=== PATIENT | male | born 1940 | race Caucasian/White ===

== ENCOUNTER → 2020-12-16 00:16 | Outpatient (CLI) | payer OTHER, SELFPAY ==
[2020-12-16 19:32] LABS: SARS-CoV-2 RNA PCR Negative
== END ==
PROVIDERS: PCP Internal Medicine; Visit Provider Internal Medicine Gastroenterology
DX: Z01.812 Encounter for preprocedural laboratory examination (principal); Z20.822 Contact with and (suspected) exposure to COVID-19
CPT/HCPCS: C9803; U0003; U0005

== ENCOUNTER 2020-12-19 01:28 | Day surgery (SDC) | payer OTHER, SELFPAY ==
--- NOTE | 2020-12-19 10:17 | WPDANESEPP ---
Anes - Eval Pre Procedure Procedure: Operation Date: 12/19/20 13:30 Proposed Procedures p Screening Colonoscopy - Arron Hsieh MD Date/Time: 12/19/20 10:17 Pre Op Diagnosis: Hx of Colon Polyps Patient Data Age: 80 Gender: M Height: 5 ft 11 in Weight: 65 kg Allergies Allergy/AdvReac Type Severity Reaction Status Date / Time No Known Allergies Allergy Unverified 11/20/20 08:02 Home Medications Medication Instructions Recorded Confirmed Type aspirin 81 mg tablet,delayed 81 mg PO DAILY 11/20/20 12/04/20 History release atorvastatin 20 mg tablet 20 mg PO DAILY #90 tablet 11/20/20 12/04/20 Rx lisinopril 20 mg tablet 20 mg PO DAILY #90 tablet 11/20/20 12/04/20 Rx lutein 20 mg tablet 20 mg PO DAILY 11/20/20 12/04/20 History vit C,E,zinc,copper-ttaxt7x 250 1 cap PO DAILY 11/20/20 12/04/20 History mg-lutein 5 mg-zeaxanthin 1 mg capsule cholecalciferol (vitamin D3) 1,250 50,000 unit PO WEEKLY #14 cap 11/24/20 12/04/20 Rx mcg (50,000 unit) capsule sodium,potassium,mag sulfates 17.5 See Rx Instructions PO .COMPLEX 12/02/20 Rx gram-3.13 gram-1.6 gram oral soln #354 ml Patient hx anesthesia problems: none Family hx anesthesia problems: none PMFSH Past Medical History Medical History (Updated 12/19/20 @ 10:18 by Derek Zarate CRNA) Atherosclerosis of abdominal aorta CKD (chronic kidney disease) COPD (chronic obstructive pulmonary disease) Dyslipidemia Essential hypertension History of tobacco use Weight loss Social History Social History Smoking packs per day: 0.5 Smoking cigarettes per day: 10.0 Years smoked: 30 Smoking pack-years: 15.00 Smoking status: Former smoker Tobacco type: cigarettes Alcohol intake: never Substance use: never Substance use type: does not use Living arrangements: with family Spiritual care concerns: No Exam Day of Procedure 12/19/20 10:17 Patient weight: normal Airway: Mallampati scale class II Neurological: alert and oriented
[2020-12-19 12:06] VITALS: BP 172/79; PULSE 84; RESP 20; TEMP 37.2; O2SAT 96; BMI 18.6
[2020-12-19] MEDS: LACTATED RINGERS 1,000 ML 150 ML IV CONT (12:21)
--- NOTE | 2020-12-19 12:28 | WPDANESEFPP ---
Anes - Eval Final PreProcedure Day of Procedure 12/19/20 12:28 Patient weight: thin Heart: regular rate and rhythm Lungs: clear to auscultation and normal air movement Airway: Mallampati scale class II Neurological: alert and oriented Last oral intake: >/= 8 hours ASA classification: III Emergent: no Anesthetic plan: proceed Anesthesia type and monitoring: general GIVS and standard monitoring Informed Consent: The patient's anesthetic plan and its attendant risks and benefits were discussed with the patient/family/POA. Questions were solicited and answers provided to the satisfaction of the patient/family/POA.
--- NOTE | 2020-12-19 15:17 | PM.HPGS ---
History of Present Illness History of Present Illness Consent: Risks, benefits, and alternatives have been discussed and questions answered. Patient agrees to proceed with procedure. Chief complaint: Hx of Colon Polyps Narrative: Dontrell Joseph Jr. is a 80 year old male with colon polyps 2017 Review of Systems Constitutional: Constitutional: Denies headache(s) and Denies weakness Eyes: Eyes: Denies blurry vision ENT: Reports Normal hearing present, Denies headache(s) and Denies neck pain Cardiovascular: Cardiovascular: Denies chest pain and Denies dyspnea Respiratory: Respiratory: Denies dyspnea Gastrointestinal: Gastrointestinal: Reports no additional gastrointestinal complaints Genitourinary: Genitourinary: Denies dysuria Musculoskeletal: Musculoskeletal: Denies neck pain Integumentary/Breasts: Skin/Breast: Denies dry skin Neurologic: Reports Normal hearing present, Denies headache(s) and Denies weakness Psychiatric: Psychiatric: Denies anxiety Endocrine: Endocrine: Denies change in body appearance Hematologic/Lymphatic: Hematologic/Lymphatic: Denies easy bleeding Allergic/Immunologic: Allergic/Immunologic: Denies urticaria PMFSH Past Medical History Medical History (Updated 12/19/20 @ 15:18 by Arron Hsieh MD) Adenomatous colon polyp Atherosclerosis of abdominal aorta CKD (chronic kidney disease) COPD (chronic obstructive pulmonary disease) Dyslipidemia Essential hypertension History of tobacco use Weight loss Social History Social History Smoking packs per day: 0.5 Smoking cigarettes per day: 10.0 Years smoked: 30 Smoking pack-years: 15.00 Smoking status: Former smoker Tobacco type: cigarettes Alcohol intake: never Substance use: never Substance use type: does not use Living arrangements: with family Spiritual care concerns: No Meds Home Medications and Allergies Home Medications Medication Instructions Recorded Confirmed Type aspirin 81 mg tablet,delayed 81 mg PO DAILY 11/20/20 12/04/20 History release atorvastatin 20 mg tablet 20 mg PO DAILY #90 tablet 11/20/20 12/04/20 Rx lisinopril 20 mg tablet 20 mg PO DAILY #90 tablet 11/20/20 12/04/20 Rx lutein 20 mg tablet 20 mg PO DAILY 11/20/20 12/04/20 History vit C,E,zinc,copper-vxdjc6g 250 1 cap PO DAILY 11/20/20 12/04/20 History mg-lutein 5 mg-zeaxanthin 1 mg capsule cholecalciferol (vitamin D3) 1,250 50,000 unit PO WEEKLY #14 cap 11/24/20 12/04/20 Rx mcg (50,000 unit) capsule sodium,potassium,mag sulfates 17.5 See Rx Instructions PO .COMPLEX 12/02/20 Rx gram-3.13 gram-1.6 gram oral soln #354 ml Allergies Allergy/AdvReac Type Severity Reaction Status Date / Time No Known Allergies Allergy Unverified 12/19/20 12:02 Vital Signs Vital Signs - 24 hr 12/19/20 12:06 Temperature 99.0 F Pulse Rate 84 Respiratory Rate 20 Blood Pressure 172/79 H Pulse Oximetry 96 Exam Const: General: comfortable and no acute distress HENMT: General nose exam: Normal nares present Eyes: General: appearance normal, both eyes and all related structures Neck: Neck: no JVD Resp: Auscultation: clear to auscultation bilaterally Cardio: Rate: regular rate Rhythm: regular rhythm GI: Inspection: non-distended GI Palp: Yes Soft to palpation Skin: General skin exam: normal color Neuro: General: gait normal Speech: normal speech Extrem: General: normal to inspection Psych: Mental Status: mental status grossly normal Assessment and Plan Assessment and plan (1) Adenomatous colon polyp: Code(s): D12.6 - Benign neoplasm of colon, unspecified Status: Acute Assessment and Plan: proceed with colonoscopy
[2020-12-19 15:46] VITALS: BP 116/67; PULSE 78; RESP 25; O2SAT 97
[2020-12-19 15:56] VITALS: BP 129/52; PULSE 60; RESP 18; O2SAT 98
[2020-12-19 16:06] VITALS: BP 140/71; PULSE 68; RESP 17; O2SAT 98
== END 2020-12-19 16:10 | disposition home or self-care (01) ==
PROVIDERS: PCP Internal Medicine; Visit Provider Internal Medicine Gastroenterology
PROC: 0DJD8ZZ Inspection of Lower Intestinal Tract, Via Natural or Artificial Opening Endoscopic (ICD-10-PCS; CPT 45378; principal; 2020-12-19 13:30)
DX: Z12.11 Encounter for screening for malignant neoplasm of colon (principal); D12.2 Benign neoplasm of ascending colon; D12.4 Benign neoplasm of descending colon; K57.30 Diverticulosis of large intestine without perforation or abscess without bleeding; K62.3 Rectal prolapse; I12.9 Hypertensive chronic kidney disease with stage 1 through stage 4 chronic kidney disease, or unspecified chronic kidney disease; N18.9 Chronic kidney disease, unspecified; J44.9 Chronic obstructive pulmonary disease, unspecified; Z87.891 Personal history of nicotine dependence
CPT/HCPCS: 45385; 88305; C9803; J2704; J7120; U0003; U0005

== ENCOUNTER 2025-06-16 10:29 | Outpatient (CLI) | payer OTHER, SELFPAY ==
[2025-06-16 11:14] LABS: Hematocrit 45.3 % (42.0-52.0); Hemoglobin 14.8 g/dL (14.0-18.0); Immature Granulocyte Percent A 0.2 % (0-0.5); Lymphocytes Absolute Auto 1.94 K/mm3 (0.9-3.2); Mean Corpuscular HGB Conc 32.7 g/dl (32-36); Mean Corpuscular Hemoglobin 31.0 pg (26-34); Mean Corpuscular Volume 94.8 fl (80-100); Nucleated Red Blood Cells Absolute Auto 0.000 K/mm3 (0.0-0.012); Nucleated Red Blood Cells Perc 0.0 % (0.0-0.2); Platelet Count Result 146 k/mm3 (150-375); Red Blood Count 4.78 M/mm3 (4.6-6.20); White Blood Count 8.2 K/mm3 (4.5-10.0)
[2025-06-16 11:30] LABS: Hemoglobin A1C 5.9 % (<5.7)
[2025-06-16 11:35] LABS: Alanine Aminotransferase 14 U/L (6-50); Albumin Level 4.0 g/dL (3.5-5.1); Alkaline Phosphatase 75 U/L (38-126); Anion Gap 6 mmol/L (4-12); Aspartate Amino Transferase 30 U/L (17-59); Bilirubin,Total 0.7 mg/dL (0.2-1.3); Blood Urea Nitrogen 17 mg/dL (9-20); Calcium 8.9 mg/dL (8.4-10.2); Carbon Dioxide 33 mmol/L (22-30); Chloride 101 mmol/L (98-107); Estimated Glomerular Filt Rate > 60; Glucose 132 mg/dL (65-110); Potassium 3.6 mmol/L (3.4-5.0); Sodium 140 mmol/L (137-145); Total Protein 7.1 g/dL (6.3-8.2)
[2025-06-16 12:30] LABS: Vitamin B12 300.0 pg/mL (239-931)
== END 2025-06-16 10:30 | disposition home or self-care (01) ==
PROVIDERS: PCP Family Medicine; Visit Provider Family Medicine
DX: I12.9 Hypertensive chronic kidney disease with stage 1 through stage 4 chronic kidney disease, or unspecified chronic kidney disease (principal); N18.2 Chronic kidney disease, stage 2 (mild); I50.30 Unspecified diastolic (congestive) heart failure; R73.01 Impaired fasting glucose; E55.9 Vitamin D deficiency, unspecified; E46 Unspecified protein-calorie malnutrition; J44.9 Chronic obstructive pulmonary disease, unspecified
CPT/HCPCS: 36415; 80053; 82306; 82607; 83036; 85025